=== PATIENT | female | born 1990 | race Caucasian/White ===

== ENCOUNTER 2016-06-25 09:45 | Emergency (ER) | payer OTHER ==
[~2016-06-25] VITALS: Ht 170.2 cm; Wt 72.6 kg
[2016-06-25 10:14] VITALS: BP 92/59
--- NOTE | 2016-06-25 10:19 | NUR ---
PATIENT AMBULATED TO EBD 5 AT THIS TIME.
--- NOTE | 2016-06-25 10:20 | NUR ---
25/F BIB SELF C/O URINARY BURNING YESTERDAY. PT DENIES ANY PAIN , N/V/D; SKIN IS PINK/WARM/DRY; AAOX4 WITH EVEN AND STEADY GAIT; LUNGS CLEAR BL; HR EVEN AND REGULAR; PT DENIES ANY FEVER, CP, SOB, OR COUGH AT THIS TIME; PATIENT STATES PAIN OF 0/10 AT THIS TIME; VSS; PATIENT POSITIONED FOR COMFORT; HOB ELEVATED; BEDRAILS UP X2; BED DOWN. ER MD MADE AWARE OF PT STATUS.
--- NOTE | 2016-06-25 10:30 | NUR ---
DR PEÑA EVALUATING PT AT BEDSIDE
[2016-06-25] MEDS ORDERED: PHENAZOPYRIDINE 100 MG TAB PO ONE (10:40)
[2016-06-25] MEDS ORDERED: LEVOFLOXACIN 500 MG TAB PO ONE (10:40)
[2016-06-25 11:21] VITALS: BP 115/70
--- NOTE | 2016-06-25 11:21 | NUR ---
Patient discharged with v/s stable. Written and verbal after care instructions given and explained. Patient alert, oriented and verbalized understanding of instructions. Ambulatory with steady gait. All questions addressed prior to discharge. ID band removed. Patient advised to follow up with PMD. Rx of KEFLEX & PYRIDIUM given. Patient educated on indication of medication including possible reaction and side effects. Opportunity to ask questions provided and answered.
== END 2016-06-25 11:21 | disposition home or self-care (01) ==
LOC: MED 09:45
DX: N39.0 Urinary tract infection, site not specified (principal)

== ENCOUNTER 2016-08-21 03:05 | Emergency (ER) | payer OTHER ==
[~2016-08-21] VITALS: Ht 170.2 cm; Wt 80.7 kg
[2016-08-21 03:20] VITALS: BP 125/70
--- NOTE | 2016-08-21 06:00 | NUR ---
PATIENT LEFT WITHOUT BEING SEEN BY DR. EVANS. NO FURTHER CARE PROVIDED FOR PATIENT.
== END 2016-08-21 06:00 | disposition left against medical advice (07) ==
LOC: MED 03:05
DX: R35.0 Frequency of micturition (principal); Z53.21 Procedure and treatment not carried out due to patient leaving prior to being seen by health care provider

== ENCOUNTER 2016-12-02 07:26 | Emergency (ER) | payer OTHER ==
[~2016-12-02] VITALS: Ht 167.6 cm; Wt 80.7 kg
[2016-12-02 07:32] VITALS: BP 113/73
--- NOTE | 2016-12-02 07:39 | NUR ---
PT AMBULATED TO BED7
--- NOTE | 2016-12-02 07:40 | NUR ---
26/F BIB SELF C/O LOWER ABDOMINAL & LOWER BACK PAIN & DYSUREA X 1 DAY. DENIES N/V/D; SKIN IS PINK/WARM/DRY; AAOX4 WITH EVEN AND STEADY GAIT; LUNGS CLEAR BL; HR EVEN AND REGULAR; PT DENIES ANY FEVER, CP, SOB, OR COUGH AT THIS TIME; PATIENT STATES PAIN OF 9/10 AT THIS TIME; VSS; PATIENT POSITIONED FOR COMFORT; HOB ELEVATED; BEDRAILS UP X2; BED DOWN. ER MD MADE AWARE OF PT STATUS.
--- NOTE | 2016-12-02 07:56 | NUR ---
ER MD DR JOEL EVALUATING PT AT BEDSIDE.
--- NOTE | 2016-12-02 08:02 | NUR ---
PT STS PAIN 09/18, " I DON'T WANT PAIN MED".
--- NOTE | 2016-12-02 08:02 | NUR ---
Theo dugan in ED - 12/02/16 at 0813 by [email or web address] PT STS PAIN 09/18, DENIES PAIN MED.
[2016-12-02 08:10] VITALS: BP 105/60
--- NOTE | 2016-12-02 08:10 | NUR ---
Patient discharged with v/s stable. Written and verbal after care instructions given and explained. Patient alert, oriented and verbalized understanding of instructions. Ambulatory with steady gait. All questions addressed prior to discharge. ID band removed. Patient advised to follow up with PMD. Rx of PYRIDIUM & CIPRO given. Patient educated on indication of medication including possible reaction and side effects. Opportunity to ask questions provided and answered.
== END 2016-12-02 08:10 | disposition home or self-care (01) ==
LOC: MED 07:26
DX: N39.0 Urinary tract infection, site not specified (principal)
CPT/HCPCS: 81002; 81025; 99283

== ENCOUNTER 2017-01-14 07:55 | Emergency (ER) | payer OTHER ==
[~2017-01-14] VITALS: Ht 172.7 cm; Wt 80.7 kg
[2017-01-14 08:00] VITALS: BP 131/63
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
[2017-01-14 08:35] VITALS: BP 130/79
--- NOTE | 2017-01-14 08:35 | NUR ---
Patient discharged with v/s stable. Written and verbal after care instructions given and explained. Patient alert, oriented and verbalized understanding of instructions. Ambulatory with steady gait. All questions addressed prior to discharge. ID band removed. Patient advised to follow up with PMD. Rx of Lice Killing Shampoo and Hydrocortisone cream given. Patient educated on indication of medication including possible reaction and side effects. Opportunity to ask questions provided and answered.
== END 2017-01-14 08:35 | disposition home or self-care (01) ==
LOC: MED 07:55
DX: B85.0 Pediculosis due to Pediculus humanus capitis (principal); R03.0 Elevated blood-pressure reading, without diagnosis of hypertension
CPT/HCPCS: 99283

== ENCOUNTER 2017-05-16 11:02 | Emergency (ER) | payer OTHER ==
[~2017-05-16] VITALS: Ht 167.6 cm; Wt 83.1 kg
[2017-05-16 11:20] VITALS: BP 113/67
--- NOTE | 2017-05-16 12:11 | NUR ---
c/o flight of ideas, nervous feeling, sob , heavy sharp sensation to chest x 2 days admits recents bouts of watery stools and vomiting, bodyaches, generalized fatigue x 2 days ago everyone in house hold with similar abdominal symptoms hx---anxiety? rx---none
--- NOTE | 2017-05-16 12:47 | NUR ---
no acute chnages in condition, pt resp even and unlabored,, onra@98%
[2017-05-16 12:48] VITALS: BP 129/75
--- NOTE | 2017-05-16 12:48 | NUR ---
Patient discharged with v/s stable. Written and verbal after care instructions given and explained. Patient alert, oriented and verbalized understanding of instructions. Ambulatory with steady gait. All questions addressed prior to discharge. ID band removed. Patient advised to follow up with PMD. Rx of vistaril given. Patient educated on indication of medication including possible reaction and side effects. Opportunity to ask questions provided and answered.
== END 2017-05-16 12:48 | disposition home or self-care (01) ==
LOC: MED 11:02
DX: F41.9 Anxiety disorder, unspecified (principal)
CPT/HCPCS: 99283; 99284

== ENCOUNTER 2018-03-05 14:46 | Emergency (ER) | payer OTHER ==
[~2018-03-05] VITALS: Ht 170.2 cm; Wt 83.5 kg
[2018-03-05 14:51] VITALS: BP 130/77
[2018-03-05 17:21] VITALS: BP 127/76
== END 2018-03-05 17:21 | disposition home or self-care (01) ==
LOC: MED 14:46
DX: K60.2 Anal fissure, unspecified (principal); K62.5 Hemorrhage of anus and rectum; F41.9 Anxiety disorder, unspecified
CPT/HCPCS: 81002; 81025; 99283

== ENCOUNTER 2018-12-21 10:38 | Emergency (ER) | payer MEDICAID, OTHER ==
[~2018-12-21] VITALS: Ht 167.6 cm; Wt 81.2 kg
[2018-12-21 10:41] VITALS: BP 139/87
--- NOTE | 2018-12-21 10:48 | NUR ---
Patient ambulated to bed 2 with family. RN evaluating patient at bedside.
--- NOTE | 2018-12-21 10:48 | NUR ---
Theo dugan in [facility] - 12/21/18 at 1048 by [email or web address] Patient ambulated to bed 3 with family. RN evaluating patient at bedside.
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
[2018-12-21 12:22] VITALS: BP 122/82
--- NOTE | 2018-12-21 12:23 | NUR ---
Patient discharged with v/s stable. Written and verbal after care instructions given and explained. Patient verbalized understanding. Ambulatory with steady gait. All questions addressed prior to discharge. Advised to follow up with PMD.
== END 2018-12-21 12:23 | disposition home or self-care (01) ==
LOC: MED 10:38
DX: F41.0 Panic disorder [episodic paroxysmal anxiety] (principal)
CPT/HCPCS: 71045; 81025; 93005; 99284; Q0092

== ENCOUNTER 2019-07-06 18:15 | Emergency (ER) | payer SELFPAY ==
[~2019-07-06] VITALS: Ht 172.7 cm; Wt 85.7 kg
[2019-07-06 19:10] VITALS: BP 135/83
--- NOTE | 2019-07-06 19:30 | NUR ---
28/F presents ambulatory to chair with mother, c/o mouth sore/ulcer, x4 months, also c/o new sore/ulcer/spot of redness on inside of lip, x4 days. Pt concerned, stating pt's dentist mentioned that it may be HPV/STI. Denies fever/chills. Pt awake and alert, skin normal color warm and dry, rr even and unlabored. Hx Anxiety/panic attack; denies rx
--- NOTE | 2019-07-06 20:38 | NUR ---
Patient verbally discharged with last VS stable by PEGGY Flynn. Verbal after care instructions given and explained by PEGGY Flynn, pt left without written discharged instructions or Rx. All questions addressed prior to discharge by PEGGY Flynn.
[2019-07-06 20:39] VITALS: BP 135/83
== END 2019-07-06 20:39 | disposition home or self-care (01) ==
LOC: MED 18:15
DX: K13.70 Unspecified lesions of oral mucosa (principal); R21 Rash and other nonspecific skin eruption; R03.0 Elevated blood-pressure reading, without diagnosis of hypertension; F41.9 Anxiety disorder, unspecified
CPT/HCPCS: 99281

== ENCOUNTER 2022-11-10 08:54 | Emergency (ER) | payer SELFPAY ==
[~2022-11-10] VITALS: Ht 170.2 cm; Wt 99.8 kg
[2022-11-10 09:18] VITALS: BP 120/79; PULSE 66; RESP 16; TEMP 97.3; O2SAT 98
[2022-11-10] MEDS ORDERED: DIPH25TA53 PO (10:26)
--- NOTE | 2022-11-10 10:32 | NUR ---
Patient discharged with v/s stable. Written and verbal after care instructions given and explained. Patient alert, oriented and verbalized understanding of instructions. Ambulatory with steady gait. All questions addressed prior to discharge. ID band removed. Patient advised to follow up with PMD. Rx of BENADRYL given. Patient educated on indication of medication including possible reaction and side effects. Opportunity to ask questions provided and answered.
== END 2022-11-10 10:30 | disposition home or self-care (01) ==
LOC: MED 08:54
DX: H10.13 Acute atopic conjunctivitis, bilateral (principal); Z79.899 Other long term (current) drug therapy
CPT/HCPCS: 99282